=== PATIENT | female | born 1990 | race Caucasian/White ===

== ENCOUNTER 2021-06-09 10:03 | Outpatient (CLI) | payer OTHER, SELFPAY ==
--- NOTE | 2021-06-09 | ECHO_ITS ---
Patient Info Name: Concepcion Tavares Age: 30 years : 1990 Gender: Female Ht: 62 in Wt: 205 lbs BSA: 2.06 m2 HR: 92 bpm BP: 143 / 91 mmHg Heart Rhythm: Sinus Rhythm Technical Quality: Good Exam Date: 06/09/2021 2:33 PM Exam Location: [facility] Patient Status: Outpatient Admit Date: 06/09/2021 Staff Ordering Physician: Salazar, Tracee BARNES Braille Proofreader: Graciela Allen RDCS Attending Provider: Salazar, Tracee BARNES Referring Physician: Salazar VIRAMONTES; Exam Type: CA echo doppler color flow Study Info Indications R01.1 - Cardiac murmur, unspecified Complete two-dimensional, color flow and Doppler transthoracic echocardiogram is performed. Summary 1. Complete two-dimensional, color flow and Doppler transthoracic echocardiogram is performed. 2. Left ventricular systolic function is normal, estimated at 60-65%. 3. Left ventricular chamber dimension is normal. 4. Right ventricular chamber dimension is normal. 5. No valvular lesions. Left Ventricle Left ventricular chamber dimension is normal. Left ventricular systolic function is normal, estimated at 60-65%. The left ventricular diastolic function is normal. Right Ventricle Right ventricular chamber dimension is normal. Left Atria Left atrial chamber dimension is normal. Right Atria Right atrial chamber dimension is normal. Aortic Valve The aortic valve is normal. Pulmonic Valve The pulmonic valve is normal. Mitral Valve The mitral valve has normal leaflets. Tricuspid Valve The tricuspid valve leaflets are normal. Pericardium/Pleural The pericardium appears normal. Aorta The aortic root size at the sinus of Valsalva is normal. Left Ventricular Outflow Tract Name Value Normal LVOT 2D LVOT Diameter 1.9 cm LVOT Doppler LVOT Peak Gradient 11 mmHg LVOT Mean Gradient 5 mmHg LVOT VTI 31 cm LVOT VTI/AV VTI Ratio 1.1 LVOT Stroke Volume 86 ml LVOT CO 7.6 l/min LVOT CI 3.7 l/min/m2 Pulmonic Valve Name Value Normal RVOT Doppler RVOT Peak Gradient 4 mmHg PV Doppler PV Peak Gradient 7 mmHg Mitral Valve Name Value Normal MV Doppler MV Decel [place] 636 cm/s2 MV PHT 42 ms MV Area (PHT)
--- NOTE | ~2021-06-09 | US_ITS ---
EXAMINATION: US carotid duplex BI DATE: 06/09/2021 11:30 INDICATION: Carotid bruit TECHNIQUE: Grayscale, color Doppler, and pulsed Doppler images of the cervical carotid arteries were obtained. The degree of vessel stenosis is placed in one of the following categories: normal, <50%, 5 0-69%, >=70% but less than near-occlusion, near-occlusion, or total occlusion. Note that percent sten osis relative to normal distal artery lumen diameter is indirectly measured from velocity measurement s as described by Krishna, et al. Radiology 2003; 229:340-346. COMPARISON: None. FINDINGS: RIGHT: The right common carotid artery (CCA) peak systolic velocity (PSV) is 100 cm/s. The right internal ca rotid artery (ICA) PSV is 90 cm/s. The right ICA end-diastolic velocity (EDV) is 37 cm/s. The right I CA/CCA PSV ratio is 0.9. Grayscale and color Doppler images yield an estimate of <50% diameter reduct ion from plaque in the ICA. The external carotid artery (ECA) PSV is 115 cm/s. There is antegrade jeannie w in the right vertebral artery. LEFT: The left CCA PSV is 67 cm/s. The left ICA PSV is 103 cm/s. The left ICA EDV is 89 cm/s. The left ICA/ CCA PSV ratio is 1.5. Grayscale and color Doppler images yield an estimate of <50% diameter reduction from plaque in the ICA. The ECA PSV is cm/s. There is antegrade flow in the left vertebral artery. IMPRESSION: 1. <50% stenosis in the right internal carotid artery. 2. <50% stenosis in the left internal carotid artery. Reviewed, dictated and finalized at location A.
== END 2021-06-09 10:04 | disposition home or self-care (01) ==
PROVIDERS: PCP Internal Medicine; Visit Provider Physician Assistant Medical
DX: R01.1 Cardiac murmur, unspecified (principal); I65.23 Occlusion and stenosis of bilateral carotid arteries
CPT/HCPCS: 93306; 93880

== ENCOUNTER 2021-08-19 15:02 | Observation (INO) | payer OTHER, SELFPAY ==
[2021-08-19] VITALS (76 sets, daily range): BP systolic 117–137; BP diastolic 61–79; PULSE 57–109; TEMP 36.8; O2SAT 89–100
[2021-08-19 11:54] LABS: Basophils Absolute Auto 0.1 K/mm3 (0.0-0.1); Basophils Percent Auto 0.6 % (0.2-1.2); Eosinophils Absolute Auto 0.1 K/mm3 (0-0.3); Eosinophils Percent Auto 1.3 % (0-4.4); Hematocrit 34.9 % (37.0-47.0); Hemoglobin 11.7 g/dL (12.0-15.0); Immature Granulocyte Absolute 0.05 K/mm3 (0.00-0.031); Immature Granulocyte Percent A 0.5 % (0-0.5); Lymphocytes Absolute Auto 1.79 K/mm3 (0.9-3.2); Mean Corpuscular HGB Conc 33.5 g/dl (32-36); Mean Corpuscular Hemoglobin 30.5 pg (26-34); Mean Corpuscular Volume 91.1 fl (80-100); Mean Platelet Volume 11.9 fl (7.4-10.4); Monocytes Absolute Auto 0.9 K/mm3 (0.1-0.6); Monocytes Percent Auto 9.3 % (2.6-8.5); Neutrophils Percent Auto 70.3 % (45.5-73.1); Platelet Count Result 203 k/mm3 (150-375); Red Blood Count 3.83 M/mm3 (4.2-5.4); Red Cell Distribution Width 13.6 % (11.5-14.5)
[2021-08-19 11:57] LABS: Add Urine Microscopic? NO; Appearance Urine Clear (Clear); Bilirubin Urine Negative (Negative); Blood Urine Negative (Negative); Color Urine Yellow (Yellow); Glucose Urine UA Negative (Negative); Ketones Urine Negative (Negative); Leukocyte Esterase Ur Negative LEU/UL (Negative); Nitrate Urine Negative (Negative); Protein Urine Negative (Negative); Urobilinogen Urine Negative mg/dL (<2.0)
[2021-08-19 12:08] LABS: Alanine Aminotransferase 20 U/L (4-35); Albumin Level 3.9 g/dL (3.5-5.1); Alkaline Phosphatase 185 U/L (38-126); Anion Gap 10 mmol/L (8-16); Aspartate Amino Transferase 23 U/L (14-36); Bilirubin,Total 0.4 mg/dL (0.2-1.3); Blood Urea Nitrogen 4 mg/dL (7-17); Calcium 9.7 mg/dL (8.4-10.2); Carbon Dioxide 21 mmol/L (22-30); Chloride 105 mmol/L (98-107); Estimated Glomerular Filt Rate > 60; Glucose 98 mg/dL (65-110); Potassium 3.7 mmol/L (3.4-5.0); Sodium 136 mmol/L (137-145); Uric Acid 3.3 mg/dL (2.5-7.5)
[2021-08-19 13:42] LABS: Creatinine Urine 46.5 mg/dL; Total Protein Urine Random 15 mg/dL; Ur Ttl Prot Creatinine Ratio 0.32 mg/mg (0-0.20)
[2021-08-19] MEDS: NIFEdipine 30 MG TAB.ER.24 PO (15:00)
[2021-08-19] MEDS: TERBUTALINE SULFATE 1 MG/ML VIAL 0.25 MG SUB-Q (16:12)
--- NOTE | 2021-08-24 17:46 | PM.OBTRLD ---
OB - Triage/Final Diagnosis Visit Information Date of evaluation: 08/19/21 Reason for evaluation: other (elevated blood pressure) Comments/Additional reasons for admission: I have assessed the risk for this patient, Concepcion Tavares, and determined that she would benefit from observation care. Evaluation Laboratory results: Laboratory Tests 08/19/21 08/19/21 08/19/21 11:42 11:42 11:42 WBC 10.0 RBC 3.83 L Hgb 11.7 L Hct 34.9 L MCV 91.1 MCH 30.5 MCHC 33.5 RDW 13.6 Plt Count 203 MPV 11.9 H Immature Gran % (Auto) 0.5 Neut % (Auto) 70.3 Lymph % (Auto) 18.0 L [place] % (Auto) 9.3 H Eos % (Auto) 1.3 Baso % (Auto) 0.6 Lymph # (Auto) 1.79 [place] # (Auto) 0.9 H Eos # (Auto) 0.1 Baso # (Auto) 0.1 Abs Immat Gran (auto) 0.05 H Absolute Neuts (auto) 7.0 H Absolute Nucleated RBC 0.0 Nucleated RBC % 0.0 Sodium 136 L Potassium 3.7 Chloride 105 Carbon Dioxide 21 L Anion Gap 10 BUN 4 L Creatinine 0.40 L Estim Creat Clear Calc Not Reportable Estimated GFR > 60 Glucose 98 Uric Acid 3.3 Calcium 9.7 Total Bilirubin 0.4 AST 23 ALT 20 Alkaline Phosphatase 185 H Total Protein 7.0 Albumin 3.9 Urine Color Urine Appearance Urine pH Ur Specific [place] Urine Protein Urine Glucose (UA) Urine Ketones Ur Blood (Man) Urine Nitrate Urine Bilirubin Urine Urobilinogen Leukocyte Esterase Rfl U Random Total Protein 15 Urine Creatinine 46.5 Protein/Creat Ratio 2 0.32 H 08/19/21 11:42 WBC RBC Hgb Hct MCV MCH MCHC RDW Plt Count MPV Immature Gran % (Auto) Neut % (Auto) Lymph % (Auto) [place] % (Auto) Eos % (Auto) Baso % (Auto) Lymph # (Auto) [place] # (Auto) Eos # (Auto) Baso # (Auto) Abs Immat Gran (auto) Absolute Neuts (auto) Absolute Nucleated RBC Nucleated RBC % Sodium Potassium Chloride Carbon Dioxide Anion Gap BUN Creatinine Estim Creat Clear Calc Estimated GFR Glucose Uric Acid Calcium Total Bilirubin AST ALT Alkaline Phosphatase Total Protein Albumin Urine Color Yellow Urine Appearance Clear Urine pH 8.0 Ur Specific [place] 1.010 Urine Protein Negative Urine Glucose (UA) Negative Urine Ketones Negative Ur Blood (Man) Negative Urine Nitrate Negative Urine Bilirubin Negative Urine Urobilinogen Negative Leukocyte Esterase Rfl Negative U Random Total Protein Urine Creatinine Protein/Creat Ratio 2
== END 2021-08-19 18:26 | disposition home or self-care (01) ==
LOC: ANHOBOP 15:25 → ANHOBPP 15:25
PROVIDERS: Advanced Practice Midwife; Admitting Provider Obstetrics & Gynecology; PCP Internal Medicine; Visit Provider Obstetrics & Gynecology
DX: O16.9 Unspecified maternal hypertension, unspecified trimester (principal); Z3A.00 Weeks of gestation of pregnancy not specified
CPT/HCPCS: 36415; 59025; 80053; 81003; 82570; 84156; 84550; 85025; 96372; 99199; A9270; G0378; G0379; J3105

== ENCOUNTER 2021-08-26 10:44 | Outpatient (CLI) | payer OTHER, SELFPAY ==
[2021-08-26 11:15] VITALS: BP 136/83; PULSE 98
[2021-08-26 11:25] LABS: Basophils Percent Auto 0.3 % (0.2-1.2); Eosinophils Absolute Auto 0.3 K/mm3 (0-0.3); Hematocrit 34.6 % (37.0-47.0); Hemoglobin 11.4 g/dL (12.0-15.0); Immature Granulocyte Absolute 0.12 K/mm3 (0.00-0.031); Immature Granulocyte Percent A 0.8 % (0-0.5); Lymphocytes Absolute Auto 1.11 K/mm3 (0.9-3.2); Lymphocytes Percent Auto 7.5 % (18.3-44.2); Mean Corpuscular HGB Conc 32.9 g/dl (32-36); Mean Corpuscular Volume 91.1 fl (80-100); Mean Platelet Volume 12.2 fl (7.4-10.4); Monocytes Absolute Auto 0.9 K/mm3 (0.1-0.6); Monocytes Percent Auto 6.1 % (2.6-8.5); Neutrophils Absolute Auto 12.4 K/mm3 (1.3-6.7); Neutrophils Percent Auto 83.3 % (45.5-73.1); Platelet Count Result 212 k/mm3 (150-375); Red Cell Distribution Width 13.6 % (11.5-14.5); White Blood Count 14.9 K/mm3 (4.5-10.0)
[2021-08-26 11:29] LABS: Total Protein Urine Random 15 mg/dL
[2021-08-26 11:30] VITALS: BP 126/72; PULSE 85
[2021-08-26 11:32] LABS: Add Urine Microscopic? YES; Appearance Urine Clear (Clear); Bacteria Urine Trace /hpf; Bilirubin Urine Negative (Negative); Blood Urine Negative (Negative); Color Urine Straw (Yellow); Glucose Urine UA Negative (Negative); Ketones Urine Negative (Negative); Leukocyte Esterase Ur 1+ LEU/UL (NEGATIVE); Nitrate Urine Negative (Negative); Protein Urine Negative (Negative); RBC Urine 0-2 /hpf (0-2); Squamous Epithelial Cell Urine Few /hpf (Few); Urobilinogen Urine Negative mg/dL (<2.0); WBC Urine 0-3 /hpf (0-3)
[2021-08-26 11:42] LABS: Alanine Aminotransferase 20 U/L (4-35); Alkaline Phosphatase 191 U/L (38-126); Anion Gap 10 mmol/L (8-16); Aspartate Amino Transferase 21 U/L (14-36); Bilirubin,Total 0.4 mg/dL (0.2-1.3); Blood Urea Nitrogen 4 mg/dL (7-17); Calcium 9.1 mg/dL (8.4-10.2); Carbon Dioxide 21 mmol/L (22-30); Chloride 105 mmol/L (98-107); Estimated Glomerular Filt Rate > 60; Glucose 127 mg/dL (65-110); Potassium 3.8 mmol/L (3.4-5.0); Sodium 136 mmol/L (137-145); Specific Grav Ur 1.003 (1.001-1.035); Uric Acid 3.1 mg/dL (2.5-7.5)
[2021-08-26 11:45] VITALS: BP 128/74; PULSE 85
--- NOTE | 2021-08-26 11:50 | PC.NURSE ---
LENORA Echeverria at bedside. Tracing, BPs and labs reviewed. March D/C home.
[2021-08-26 11:55] LABS: Ur Ttl Prot Creatinine Ratio 0.75 mg/mg (0-0.20)
== END 2021-08-26 11:53 | disposition home or self-care (01) ==
LOC: ANHOBOP 10:51 → ANHOBPP 10:54
PROVIDERS: Advanced Practice Midwife; PCP Internal Medicine; Visit Provider Obstetrics & Gynecology
DX: O13.9 Gestational [pregnancy-induced] hypertension without significant proteinuria, unspecified trimester (principal); Z3A.00 Weeks of gestation of pregnancy not specified
CPT/HCPCS: 36415; 59025; 80053; 81001; 82570; 84156; 84550; 85025; 87086; 99199

== ENCOUNTER 2021-08-28 10:55 | Outpatient (CLI) | payer OTHER, SELFPAY ==
[2021-08-28 11:11] VITALS: BMI 40.6
[2021-08-28 11:42] LABS: Collection Time Urine 24 HOURS
[2021-08-28 11:43] LABS: Patient Weight 222 Lbs; Total Volume 24 Hour Urine 2300 ml
[2021-08-28 11:46] LABS: Estimated CRCL calculation 189 ml/min; Estimated Glomerular Filt Rate > 60
[2021-08-28 12:02] LABS: Creatinine Clearance Urine 225.5 ml/min (75-125); Total Protein Urine 24 Hr 345 mg/24hr (28-141); Total Protein Urine Random 15 mg/dL
== END 2021-08-28 10:56 | disposition home or self-care (01) ==
LOC: ANHOBOP 11:01
PROVIDERS: PCP Internal Medicine; Visit Provider Advanced Practice Midwife
DX: Z34.90 Encounter for supervision of normal pregnancy, unspecified, unspecified trimester (principal); Z3A.00 Weeks of gestation of pregnancy not specified
CPT/HCPCS: 36415; 81050; 82565; 82575; 84156

== ENCOUNTER 2021-08-29 13:30 | Inpatient (IN) | payer OTHER, SELFPAY ==
[2021-08-29] VITALS (20 sets, daily range): BP systolic 106–151; BP diastolic 54–121; PULSE 66–92; RESP 16–18; TEMP 36.6–36.9; BMI 40.7
[2021-08-29 14:50] LABS: Basophils Percent Auto 0.2 % (0.2-1.2); Eosinophils Absolute Auto 0.3 K/mm3 (0-0.3); Eosinophils Percent Auto 2.7 % (0-4.4); Hematocrit 34.2 % (37.0-47.0); Hemoglobin 11.4 g/dL (12.0-15.0); Immature Granulocyte Absolute 0.06 K/mm3 (0.00-0.031); Immature Granulocyte Percent A 0.6 % (0-0.5); Lymphocytes Absolute Auto 1.65 K/mm3 (0.9-3.2); Lymphocytes Percent Auto 15.9 % (18.3-44.2); Mean Corpuscular HGB Conc 33.3 g/dl (32-36); Mean Corpuscular Hemoglobin 30.2 pg (26-34); Mean Corpuscular Volume 90.7 fl (80-100); Monocytes Absolute Auto 0.9 K/mm3 (0.1-0.6); Monocytes Percent Auto 8.8 % (2.6-8.5); Neutrophils Absolute Auto 7.5 K/mm3 (1.3-6.7); Neutrophils Percent Auto 71.8 % (45.5-73.1); Platelet Count Result 213 k/mm3 (150-375); Red Blood Count 3.77 M/mm3 (4.2-5.4); Red Cell Distribution Width 13.7 % (11.5-14.5); White Blood Count 10.4 K/mm3 (4.5-10.0)
--- NOTE | 2021-08-29 15:00 | LDADM ---
This patient, Concepcion Tavares, was admitted to Labor/Delivery/Recovery 104 on 08/29/21 at 13:30. Plans for labor, pain management and were discussed with patient. Patient/family oriented to hospital policies and general routines including ID bracelet, bed and alarms, visiting hours, pain management, procedures, bathroom and other care routines, personal items, smoking policy, room service/diet and guest tray routines, infant security routines, and visiting hours. Patient/Family are encouraged to report perceived risks to care and to ask questions if they do not understand what they are told or what they should do. See OBIX for further documentation.
[2021-08-29 15:25] LABS: Alanine Aminotransferase 18 U/L (4-35); Albumin Level 3.8 g/dL (3.5-5.1); Alkaline Phosphatase 201 U/L (38-126); Anion Gap 8 mmol/L (8-16); Aspartate Amino Transferase 22 U/L (14-36); Bilirubin,Total 0.3 mg/dL (0.2-1.3); Blood Urea Nitrogen 5 mg/dL (7-17); Calcium 9.3 mg/dL (8.4-10.2); Carbon Dioxide 20 mmol/L (22-30); Chloride 108 mmol/L (98-107); Estimated CRCL calculation 155 ml/min; Estimated Glomerular Filt Rate > 60; Glucose 94 mg/dL (65-110); Potassium 3.8 mmol/L (3.4-5.0); Sodium 136 mmol/L (137-145); Uric Acid 3.3 mg/dL (2.5-7.5)
[2021-08-29] MEDS: DINOPROSTONE 10 MG VAG INSERT VAGINAL (16:12)
[2021-08-29] MEDS: LACTATED RINGERS 1,000 ML 125 ML IV CONT (16:16)
[2021-08-29] MEDS: AMPICILLIN 2 GM/NS 100 ML 2 GM/100 ML BAG IVPB (16:18)
[2021-08-29] MEDS: AMPICILLIN 1 GM/NS 50 ML 1 GM/50 ML BAG IVPB (20:25)
[2021-08-30] VITALS (108 sets, daily range): BP systolic 103–158; BP diastolic 47–114; PULSE 60–116; RESP 16–20; TEMP 36.8–37.5; O2SAT 95–100
[2021-08-30] MEDS: AMPICILLIN 1 GM/NS 50 ML 1 GM/50 ML BAG IVPB ×4 (00:29→12:19)
[2021-08-30] MEDS: OXYTOCIN 30 UNITS/NS 500 ML 30 UNITS/500 ML BAG IV CONT (06:30)
[2021-08-30] MEDS: LACTATED RINGERS 1,000 ML 125 ML IV CONT ×2 (06:31→11:14)
[2021-08-30 07:30] LABS: Rapid Plasma Reagin Non-Reactive (NonReactive)
--- NOTE | 2021-08-30 08:08 | P.HP_ITS ---
Obstetrics - Admit Note Admission Note: 30 y/o G1 @ 36w6d here for induction of labor for severe pre e. She did have 3 severe range pressures on separate occasions and elevated 24 hour total protein. Contractions irregular FHR category 1 Cervix 5/80/-2 Arom performed. Leaking scant amount of fluid. record reviewed. Plan to continue with induction. Start magnesium when active. No pertinent additions to the history and/or any subsequent changes in the physical findings that are not consistent with the expected course of the preg alice were found. Additions to the history and/or subsequent changes in the physical findings follow. None.
[2021-08-30] MEDS: fentaNYL CITRATE INJ (*CRX) 100 MCG/2 ML VIAL IV PUSH (09:22)
--- NOTE | 2021-08-30 09:53 | WPDANESEPPF ---
Anes - Initial Pre Proc Eval Date/Time: 08/30/21 09:53 Surgeon: Batsheva Bishop MD Pre Op Diagnosis: 30 y/o G1 @ 36w6d here for induction of labor for severe pre e. She did have 3 severe range pressures on separate occasions and elevated 24 hour total protein. Contractions irregular FHR category 1 Cervix 5/80/-2 Arom performed. Leaking scant amount of fluid. record reviewed. Plan to continue with induction. Start magnesium when active. Pre Op Diagnosis: Induction of Labor Patient Data Age: 30 Gender: F Height: 1.57 m Weight: 101 kg Allergies Allergy/AdvReac Type Severity Reaction Status Date / Time No Known Allergies Allergy Verified 08/29/21 15:18 Home Medications Medication Instructions Recorded Confirmed Type PNV cmb#95-ferrous fumarate-FA 1 tablet PO DAILY 08/19/21 08/29/21 History [] ferrous sulfate 143 mg PO BID 08/19/21 08/29/21 History nifedipine [Procardia XL] 30 mg PO DAILY #30 tablet 08/19/21 08/29/21 Rx sertraline 25 mg PO DAILY 08/19/21 08/29/21 History Laboratory Tests 08/29/21 08/29/21 08/29/21 14:12 14:12 14:42 WBC 10.4 K/mm3 H K/mm3 (4.5-10.0) RBC 3.77 M/mm3 L M/mm3 (4.2-5.4) Hgb 11.4 g/dL L g/dL (12.0-15.0) Hct 34.2 % L % (37.0-47.0) MCV 90.7 fl fl (80-100) MCH 30.2 pg pg (26-34) MCHC 33.3 g/dl g/dl (32-36) RDW 13.7 % % (11.5-14.5) Plt Count 213 k/mm3 k/mm3 (150-375) MPV 12.0 fl H fl (7.4-10.4) Immature Gran % (Auto) 0.6 % H % (0-0.5) Neut % (Auto) 71.8 % % (45.5-73.1) Lymph % (Auto) 15.9 % L % (18.3-44.2) [place] % (Auto) 8.8 % H % (2.6-8.5) Eos % (Auto) 2.7 % % (0-4.4) Baso % (Auto) 0.2 % % (0.2-1.2) Lymph # (Auto) 1.65 K/mm3 K/mm3 (0.9-3.2) [place] # (Auto) 0.9 K/mm3 H K/mm3 (0.1-0.6) Eos # (Auto) 0.3 K/mm3 K/mm3 (0-0.3) Baso # (Auto) 0.0 K/mm3 K/mm3 (0.0-0.1) Abs Immat Gran (auto) 0.06 K/mm3 H K/mm3 (0.00-0.031) Absolute Neuts (auto) 7.5 K/mm3 H K/mm3 (1.3-6.7) Absolute Nucleated RBC 0.0 K/mm3 K/mm3 (0.0-0.012) Nucleated RBC % 0.0 % % (0.0-0.2) Sodium 136 mmol/L L mmol/L (137-145) Potassium 3.8 mmol/L mmol/L (3.4-5.0) Chloride 108 mmol/L H mmol/L (98-107) Carbon Dioxide 20 mmol/L L mmol/L (22-30) Anion Gap 8 mmol/L mmol/L (8-16) BUN 5 mg/dL L mg/dL (7-17) Creatinine 0.50 mg/dL L mg/dL (0.7-1.0) Estim Creat Clear Calc 155 ml/min ml/min Estimated GFR > 60 (59 - ) Glucose 94 mg/dL mg/dL (65-110) Uric Acid 3.3 mg/dL mg/dL (2.5-7.5) Calcium 9.3 mg/dL mg/dL (8.4-10.2) Total Bilirubin 0.3 mg/dL mg/dL (0.2-1.3) AST 22 U/L U/L (14-36) ALT 18 U/L U/L (4-35) Alkaline Phosphatase 201 U/L H U/L (38-126) Total Protein 7.0 g/dL g/dL (6.3-8.2) Albumin 3.8 g/dL g/dL (3.5-5.1) RPR Non-reactive (NonReactive) Blood Type Antibody Screen 08/29/21 18:56 WBC RBC Hgb Hct MCV MCH MCHC RDW Plt Count MPV Immature Gran % (Auto) Neut % (Auto) Lymph % (Auto) [place] % (Auto) Eos % (Auto) Baso % (Auto) Lymph # (Auto) [place] # (Auto) Eos # (Auto) Baso # (Auto) Abs Immat Gran (auto) Absolute Neuts (auto) Absolute Nucleated RBC Nucleated RBC % Sodium Potassium Chloride Carbon Dioxide Anion Gap BUN Creatinine Estim Creat Clear Calc Estimated GFR Glucose Uric Acid Calcium Total Bilirubin AST ALT Alkaline Phosphatase To
[2021-08-30] MEDS: MAGNESIUM SULF 4 GM/WATER100ML 4 GM/100 ML BAG IVPB (10:20)
[2021-08-30] MEDS: MAGNESIUM SULF 20GM/WATER500ML 500 ML 50 MG IV CONT ×2 (11:12→21:28)
--- NOTE | 2021-08-30 14:36 | PM.OBPRVD ---
OB - Delivery Note Procedure Delivery date: 08/30/21 Procedure: vaginal delivery events: Pre-Eclampsia Intrapartal events: None Induction method: AROM, per pitocin protocol and per cervidil protocol Delivery monitor: external FHT and external uterine Route of delivery: Episiotomy description: None Laceration Description: Perineal - 2nd Degree Delivery repair: vicryl Specimen: Yes Anesthesia type: Epidural Disposition: floor Baby Date of : 08/30/21 Time of : 14:18 Weeks of gestation at delivery: 36 Infant gender: Male Weight (pounds): 6 Weight (ounces): 13 presentation: vertex position: Left Occiput Anterior Placenta delivery description: Spontaneous cord vessel description: 3 Vessels, Loose, Clamped/Cut, Around Body x1 and Delayed Cord Clamping score one minute: 6 score five minutes: 8 Narrative: mother and baby skin to skin in stable condition
[2021-08-30] MEDS: OXYTOCIN 30 UNITS/NS 500 ML 30 UNITS/500 ML BAG 125 UNITS IV CONT (15:18)
[2021-08-30] MEDS: WITCH HAZEL 40 PADS 1 PAD TOPICAL (16:09)
[2021-08-30] MEDS: BENZOCAINE 20% AER SPR (*SP) 56 GM CAN 1 SPRAY TOPICAL (16:09)
[2021-08-30] MEDS: ACETAMINOPHEN 325 MG TABLET 650 MG PO (21:07)
[2021-08-31] MEDS: LACTATED RINGERS 1,000 ML 125 ML IV CONT (01:38)
[2021-08-31 03:40] VITALS: BP 104/62; PULSE 88; RESP 20; TEMP 36.9; O2SAT 94
[2021-08-31 04:50] LABS: Hematocrit 30.2 % (37.0-47.0); Hemoglobin 10.1 g/dL (12.0-15.0)
--- NOTE | 2021-08-31 07:24 | PM.OBPNVD ---
OB - PN: Subj Subjective Date/time seen: 08/31/21 07:25 Patient comments: no complaints baby status: doing well OB - PN: Obj Data Labs CBC & Chem 7: 08/31/21 03:51 08/29/21 14:42 Labs: Laboratory Results - last 24 hr 08/29/21 08/31/21 14:12 03:51 Hgb 10.1 L Hct 30.2 L RPR Non-reactive OB - PN A/P Plan day: 1 Plan: routine care Time Spent With Patient Time: Total time spent is greater than 50% in coordination of care (as documented) at patient's floor/unit and/or counseling patient: Exam Narrative: alert Const: General: cooperative Resp: Effort & Inspection: normal respiratory effort Auscultation: clear to auscultation bilaterally Cardio: Rate: regular rate Rhythm: regular rhythm
[2021-08-31] MEDS: MAGNESIUM SULF 20GM/WATER500ML 500 ML 50 MG IV CONT (07:57)
--- NOTE | 2021-08-31 08:00 | PC.NURSE ---
Consult with pt., mother reports she has been bottle feeding due to is sleepy and not making an effort to latch. Discussed if mother wishes to attempt today assist is available. Reviewed pumping if mother wishes to initiate pumping to stimulate supply. Reviewed feeding plan would be to attempt at breast each feeding then supplement followed by pumping. Mother states she will consider options and will inform LC lamination inspector.
[2021-08-31 08:20] VITALS: BP 115/73; PULSE 83; RESP 16; TEMP 36.7; O2SAT 98
[2021-08-31] MEDS: MULTIVIT/MIN/PREN/FOL AC/IRON TABLET 1 TAB PO (09:01)
[2021-08-31] MEDS: DOCUSATE SODIUM 100 MG CAPSULE PO (09:01)
[2021-08-31 11:51] VITALS: BP 125/69; PULSE 87; RESP 16; TEMP 37.1; O2SAT 98
--- NOTE | 2021-08-31 14:31 | WPDANLDPN2 ---
Anes-Prog Note L&D Date/Time: 08/31/21 14:31 Comfortable throughout: labor and delivery Neuraxial method: epidural Epidural/Spinal procedure site: clean & non-tender Neuro status: Neuro function grossly intact. Cardiovascular status: normal Respiratory status: normal Airway patency: baseline Mental status: baseline Post-Op hydration status: normal Vital Signs: Last Vital Signs Temp 37.1 C 08/31/21 11:51 Pulse 87 08/31/21 11:51 Resp 16 08/31/21 11:51 BP 125/69 08/31/21 11:51 Pulse Ox 98 08/31/21 11:51 Pain score (VAS): 3 I/O: Intake & Output 08/30/21 08/31/21 08/31/21 23:59 07:59 15:59 Intake Total 4200 1250 1300 Output Total 2950 1900 1000 Balance 1250 -650 300 Post-procedural complaints: none Patient feedback: Patient satisfied with anesthetic care.
[2021-08-31 16:30] VITALS: BP 137/85; PULSE 84; RESP 16; TEMP 36.8; O2SAT 98
[2021-08-31 19:25] VITALS: BP 142/75; PULSE 95; RESP 16; TEMP 36.6; O2SAT 98
[2021-09-01 00:15] VITALS: BP 139/82; PULSE 82; RESP 16; TEMP 36.7
[2021-09-01 05:15] VITALS: BP 126/78; PULSE 71; RESP 18; TEMP 36.7
[2021-09-01 07:55] VITALS: BP 131/88; PULSE 81; RESP 18; TEMP 36.6; O2SAT 98
--- NOTE | 2021-09-01 07:55 | PM.OBPNVD ---
OB - PN: Subj Subjective Date/time seen: 09/01/21 07:55 Patient comments: no complaints baby status: doing well OB - PN: Obj Data Labs CBC & Chem 7: 08/31/21 03:51 08/29/21 14:42 OB - PN A/P Plan day: 2 Plan: routine care and discharge home (F/U in 1 week for bp check) Time Spent With Patient Time: Total time spent is greater than 50% in coordination of care (as documented) at patient's floor/unit and/or counseling patient: Time with patient: less than 15 minutes Review of Systems Review of Systems: All systems reviewed & are unremarkable except as noted in HPI and below Exam Narrative: Fundus firm and vaginal flow controlled. No lower ext redness, warmth, or edema. Negative homans. Denies h/a, v/d or e/p. Reflexes normal. Const: General: comfortable Chest: Breast/axilla inspection: normal inspection of the breasts Resp: Effort & Inspection: normal respiratory effort Cardio: Rate: regular rate GI: GI Palp: Yes Soft to palpation Psych: Appearance: grossly normal Affect: normal affect Attitude: cooperative Thought content: Yes Normal thought content present Judgement: Good judgement present (Psych)
[2021-09-01 08:30] VITALS: PULSE 81; RESP 18; O2SAT 98
[2021-09-01 12:28] VITALS: BP 141/74; PULSE 84; RESP 18; TEMP 37.1; O2SAT 97
--- NOTE | 2021-09-01 17:11 | PC.NURSE ---
Patient viewed the discharge video Mother & Baby Care, The First Two Weeks . Patient was given the opportunity and encouraged to ask questions. Patient verbalized understanding of information shared and has been given the mother/baby guide for home reference.
[2021-09-02 09:46] VITALS: BP 147/89; PULSE 81; RESP 20; TEMP 37.1; O2SAT 100
--- NOTE | 2021-09-19 08:31 | P.DS_ITS ---
DS: Admitting Diagnosis Discharge Date 09/01/21 Admitting Diagnosis Induction of Labor OB - DS: Summary OB Procedures : None OB Procedures Intrapartum: Spontaneous Vag Delivery OB Procedures: : None Time Spent with Patient Time attestation: Total time spent providing and/or coordinating discharge s ervices: DS: Data Data Completed and Pending Completed studies during hospitalization: Pending at discharge 08/30/21 14:21 Surgical [PTH] Routine Discharge Plan Discharge Attending physician on discharge: Carissa Cadena Consulting providers: Natalya Goldberg ; Carissa Cadena ; Johnathon Cole Discharging Clinician: Natalya Goldberg Patient Disposition: Home, Self-Care Activity: pelvic rest Diet: as tolerated Discharge Instructions: Education: Mom and Baby Guide Given to: Mother Follow-Up: Call your delivering provider's office for an appointment to be seen in: F/U 1 week for blood pressure check Mom and baby should come to the [facility] for the follow-up appointment. Appointment Date/Time: Thursday, September 02, 2021 at 9:00 a.m. What to expect at your follow-up visit: Blood Pressure Check Physical Assessment Call [phone] if you are unable to keep your appointment time. BREAST CARE: * Wear a snug supportive bra. * For engorgement discomfort: Bottle Feeding: * May apply ice packs EPISIOTOMY/PERINEAL CARE: * Until bleeding stops, use your christen bottle after urinating * Change your pad frequently throughout the day * You may take sitz baths several times a day (fill your bathtub with warm water and soak for 20 minutes.) Do NOT bathe in the water * No tub baths until seen by your physician - You may shower ACTIVITY: * Rest as much as possible. * Do not exercise or lift anything heavier than your baby (such as laundry or other children.) * Avoid stairs or driving as much as possible. * Do not put anything into the vagina. No douching, tampons, or sexual activity until seen by physician. NOTIFY PHYSICIAN IF YOU HAVE ANY QUESTIONS OR IF ANY OF THE FOLLOWING SYMPTOMS OCCUR: * If your perineum becomes red, swollen, or more painful than what you have experienced in the hospital. * If your vaginal bleeding becomes foul smelling. * If your vaginal bleeding becomes more heavy than a period or if your bleeding changes from pink to bright red. However, you may pass an occasional walnut- sized clot once or twice for the first week . * If you experience a sharp, shooting pain in you calves. DIET: * Eat regular, well-balanced meals. * Drink plenty of fluids daily. Stand Alone Forms: General Discharge Information Follow-up/Referrals: Carissa Cadena CNM [Certified Nurse Medical Claims Examiner] - Other (F/U 1 week for blood pressure check) Discharge Medications: Continued sertraline 25 mg tablet 25 mg PO DAILY RF: 0 ferrous sulfate 47.5 mg iron Tablet Extended Release 143 mg PO BID RF: 0 PNV cmb#95-ferrous fumarate-FA [] 28 mg iron- 800 mcg Tablet 1 tablet PO DAILY RF: 0 No Action mecobalamin (vitamin B12) 1,000 mcg Tablet,Disintegrating 2,000 mcg PO DAILY RF: 0 Date of admission: 08/29/21 13:30 Primary Care Provider: Shila,Moisés Franz Admitting Provider: Batsheva Bishop Attending physician on admission: Batsheva Bishop Condition: Stable
== END 2021-09-01 19:00 | disposition home or self-care (01) | DRG 807 ==
LOC: ANHOBPP 13:37 → ANHLDR 14:33 → ANHOB2 08-30 17:55
PROVIDERS: Advanced Practice Midwife; Admitting Provider Obstetrics & Gynecology; PCP Internal Medicine; Visit Provider Obstetrics & Gynecology
DX: O14.94 Unspecified pre-eclampsia, complicating childbirth (principal); Z37.0 Single live birth; Z3A.36 36 weeks gestation of pregnancy; O70.1 Second degree perineal laceration during delivery; O43.123 Velamentous insertion of umbilical cord, third trimester; O36.8330 Maternal care for abnormalities of the fetal heart rate or rhythm, third trimester, not applicable or unspecified; O99.824 Streptococcus B carrier state complicating childbirth; O69.2XX0 Labor and delivery complicated by other cord entanglement, with compression, not applicable or unspecified; Z23 Encounter for immunization
CPT/HCPCS: 36415; 59025; 80053; 81001; 81050; 82565; 82570; 82575; 84156; 84550; 85014; 85018; 85025; 86592; 86850; 86900; 86901; 87086; 88307; 90471; 90653; 99199; A9270; G0008; J0290; J2590; J3010; J3475; J7120

== ENCOUNTER 2021-09-07 10:37 | Outpatient (CLI) | payer OTHER, SELFPAY ==
[2021-09-07 11:06] VITALS: BP 136/81; PULSE 69; RESP 16; TEMP 36.8; BMI 36.5
[2021-09-07 11:07] VITALS: BP 136/81; PULSE 69
[2021-09-07 11:27] LABS: Basophils Absolute Auto 0.1 K/mm3 (0.0-0.1); Basophils Percent Auto 0.7 % (0.2-1.2); Eosinophils Absolute Auto 0.2 K/mm3 (0-0.3); Hematocrit 33.7 % (37.0-47.0); Hemoglobin 11.3 g/dL (12.0-15.0); Immature Granulocyte Absolute 0.04 K/mm3 (0.00-0.031); Immature Granulocyte Percent A 0.4 % (0-0.5); Lymphocytes Percent Auto 20.2 % (18.3-44.2); Mean Corpuscular HGB Conc 33.5 g/dl (32-36); Mean Corpuscular Hemoglobin 30.1 pg (26-34); Mean Corpuscular Volume 89.9 fl (80-100); Mean Platelet Volume 10.8 fl (7.4-10.4); Monocytes Absolute Auto 0.6 K/mm3 (0.1-0.6); Monocytes Percent Auto 6.4 % (2.6-8.5); Neutrophils Absolute Auto 6.3 K/mm3 (1.3-6.7); Neutrophils Percent Auto 70.3 % (45.5-73.1); Platelet Count Result 339 k/mm3 (150-375); Red Blood Count 3.75 M/mm3 (4.2-5.4); Red Cell Distribution Width 13.4 % (11.5-14.5); White Blood Count 8.9 K/mm3 (4.5-10.0)
[2021-09-07 11:31] VITALS: BP 131/79; PULSE 66
[2021-09-07 11:45] VITALS: BP 136/84; PULSE 66
[2021-09-07 11:45] LABS: Alanine Aminotransferase 29 U/L (4-35); Albumin Level 4.3 g/dL (3.5-5.1); Alkaline Phosphatase 170 U/L (38-126); Anion Gap 10 mmol/L (8-16); Aspartate Amino Transferase 27 U/L (14-36); Bilirubin,Total 0.5 mg/dL (0.2-1.3); Blood Urea Nitrogen 8 mg/dL (7-17); Calcium 9.2 mg/dL (8.4-10.2); Carbon Dioxide 24 mmol/L (22-30); Chloride 106 mmol/L (98-107); Estimated CRCL calculation 108 ml/min; Estimated Glomerular Filt Rate > 60; Glucose 91 mg/dL (65-110); Potassium 4.5 mmol/L (3.4-5.0); Sodium 140 mmol/L (137-145); Uric Acid 5.7 mg/dL (2.5-7.5)
[2021-09-07 12:00] VITALS: BP 140/83; PULSE 65
--- NOTE | 2021-09-07 12:03 | PC.NURSE ---
Giana Goldberg CNM informed of BP's and lab results. Orders for discharge received. Pt to make appointment for BP recheck next week in the office with either Natalya or Carissa- pt verbalizes understanding.
== END 2021-09-07 12:11 ==
LOC: ANHOBOP 10:45 → ANHOBPP 09-12 07:51
PROVIDERS: Advanced Practice Midwife; PCP Internal Medicine; Visit Provider Obstetrics & Gynecology
DX: O13.5 Gestational [pregnancy-induced] hypertension without significant proteinuria, complicating the puerperium (principal)
CPT/HCPCS: 36415; 80053; 84550; 85025; 99199

== ENCOUNTER 2021-11-11 16:45 | Emergency (ER) | payer OTHER, SELFPAY ==
[2021-11-11 17:16] VITALS: BP 159/103; PULSE 95; RESP 18; TEMP 36.7; O2SAT 100
--- NOTE | 2021-11-11 21:25 | PC.NURSE ---
Patient called at 2111 for room, no answer and not seen in waiting room.
== END 2021-11-12 03:07 | disposition left against medical advice (07) ==
LOC: ANHED 21:47
PROVIDERS: PCP Internal Medicine
DX: Z53.21 Procedure and treatment not carried out due to patient leaving prior to being seen by health care provider (principal)
CPT/HCPCS: 99199

== ENCOUNTER 2025-04-15 10:15 | Outpatient (CLI) | payer OTHER, SELFPAY ==
--- OUTSIDE RECORDS SUMMARY | 2025-04-15 10:22 | XMS_ITS | Continuity of Care Document ---
Author Organization [facility] Address [address] [place] [address] Phone Care Team Providers Care Gas Appliance Installer Name Role Phone Phuc Quinonez DO Unavailable Unavailable Advance Directives Directive Yes / No Effective Date File Name No Information Encounters Encounter Description Practice Location Reason(s) For Visit Diagnoses Date Provider Providers Copied on Encounter [facility], [address], [place], [place], [id number], tel:[phone] [facility] No Information Cristiano Glynn. [address] [place], [address], . tel: [phone] Family History Family Member Type Diagnosis Age At Onset No Information Payers Payer name Insurance type Covered libertarian ID Authoriza tion(s) General [employer] CI [id number] Social History Type Description Quantity Date Captured Comments Sex Female Smoking Status No Information Chief Complaint And Reason For Visit No Information Reason For Referral Reason For Referral No Information History Of Present Illness Encounter Date Complaint History Of Prese nt Illness No Information Functional Status Date Functional Assessmen t No Information Instructions Date Instruction Additional Infor mation No Information Assessments Type Assessment Date No Information Patient Care Teams Name Effective Dates (start - stop) Status Members No Information
[2025-04-15 10:53] LABS: Hematocrit 31.5 % (37.0-47.0); Hemoglobin 9.6 g/dL (12.0-15.0)
== END 2025-04-15 10:16 | disposition home or self-care (01) ==
PROVIDERS: PCP Nurse Practitioner Family; Visit Provider Obstetrics & Gynecology
DX: N92.6 Irregular menstruation, unspecified (principal)
CPT/HCPCS: 36415; 85014; 85018

== ENCOUNTER 2025-04-17 00:56 | Day surgery (SDC) | payer OTHER, SELFPAY ==
[2025-04-14 08:25] VITALS: BMI 33.0
--- NOTE | 2025-04-14 08:25 | PC.NURSE ---
Report to the Outpatient Waiting Room, entrance under the green pavilion located off [facility], at time _0800_ on date _[id number]_. Planned Procedure Time: _1000_.? Time changes happen often and if your time is changed the preop area will call you the afternoon before. - You and your visitor will be asked to self-screen and do not enter if you have any COVID symptoms. Please call surgeon if you need to reschedule. - A mask is optional within the hospital at this time. Patients may have clear liquids (water, carbonated beverages, clear teas, apple juice) until 3 hours prior to surgery with a maximum of 20 ounces. - No food from midnight until time of surgery and no smoking, or chewing tobacco (or any form of nicotine). No chewing gum, candy or mints. Take only the following medications with a SIP of water on the morning of surgery: ___None____ DO NOT STOP ANY OF YOUR OTHER PRESCRIPTION MEDICATIONS PRIOR TO SURGERY EXCEPT THE FOLLOWING Hold all vitamins and supplements for 3 days per anesthesiologist. Medications to discontinue per physician Date to take last dose Please no make-up, nail ghanaian, hairspray, perfume, deodorant, or body powder the day of surgery.? No jewelry (including any body piercings) or valuables the day of surgery, leave them at home.? Please take a shower or bath the night before, or the morning of, surgery with an antibacterial soap.? Wear comfortable, loose fitting clothing.? - Jewelry must be removed prior to entering the operating room.? Rings and piercings that are not removed may be cut off. - The hospital will not accept responsibility for valuables.? - Please leave all valuables, including medications, at home the day of surgery. If you are going home after surgery, a licensed caterpillar driver must drive you home.? - NO public transportation without another adult if you receive anesthesia. - We recommend that an adult stay with you for 24 hours following discharge. - We also recommend that you do not drive, make important decision, drink alcoholic beverages, or take any drugs that were not prescribed by your health care provider for at least 24 hours after your discharge time. Follow any additional instructions given to you from your surgeon. Telephone instructions given to __Concepcion___and asked if any additional questions and then verbalized understanding. Patient advised to call surgeon office or pre surgery nurse liaison [phone] if any additional questions.
--- NOTE | 2025-04-15 12:11 | P.HP_ITS ---
H&P: HPI History of Present Illness Date/Time: 04/15/25 12:11 Chief Complaint: Irregular heavy bleeding Narrative: This 34-year-old 2 para 1 admitted for hysteroscopy dilatation curettage. She has had heavy bleeding and extreme manner. This at the interferes with her daily activities when her period is present. Imaging was not helpful but the endometrial lining was somewhat irregular. In light of this finding she will undergo hysteroscopy dilatation curettage. Risks and benefits reviewed including not exclusive of , aspiration pneumonia, bleeding, transfusion, perforation injury to bowel, bladder, ureters, or other internal organs with need for open laparotomy. She received the [employer] handout entitled hysteroscopy and dilatation curettage respectively. She had all questions answered. She asked to proceed. Review of Systems Review of Systems: All systems reviewed & are unremarkable except as noted in HPI and below [facility] Past Medical History Medical History (Updated 04/15/25 @ 12:13 by Francis Lezama MD) Migraine Surgical History Surgical History History of umbilical hernia repair 11/26/2019 Family History Family History Grandparent Cancer Father Cancer Hypertension Sibling Cancer Mother Heart disease Hypertension Social History Social History Years smoked: 5 Smoking status: Former smoker Tobacco type: cigarettes and e-cigarettes/vaping Second hand tobacco smoke exposure: No Smoking end date: 04/14/20 Alcohol intake: never Substance use: never Living arrangements: with family Gender identity (if verbalized by the patient): Female Spiritual care concerns: No Meds Home Medications and Allergies Home Medications ?Medication ?Instructions ?Recorded ?Confirmed ?Type sertraline 50 mg tablet 50 mg PO HS 04/14/25 04/14/25 History Allergies Allergy/AdvReac Type Severity Reaction Status Date / Time No Known Allergies Allergy Verified 04/14/25 08:17 Exam Const: General: cooperative, healthy appearing and comfortable Nutritional Appearance: overweight Orientation/consciousness: oriented to person, oriented to place and oriented to time Resp: Effort & Inspection: normal respiratory effort Cardio: Rate: regular rate Rhythm: regular rhythm Heart sounds: S1 normal heart sound present and S2 normal heart sound present GI: Inspection: normal to inspection : External Female Exam: normal external appearance Speculum Exam - Vagina: normal appearance of the vagina Speculum Exam - Cervix: normal appearance of the cervix Bimanual exam- vagina & uterus: non-tender Bimanual Exam- Adnexa, other: normal adnexae Assessment and Plan Assessment and plan (1) Excessive bleeding: Code(s): R58 - Hemorrhage, not elsewhere classified Status: Acute Plan Will proceed with hysteroscopy/dilatation curettage
--- OUTSIDE RECORDS SUMMARY | 2025-04-17 00:59 | XMS_ITS | Continuity of Care Document ---
Author Organization [facility] Address [address] [facility] [address] [place] [address] Phone Care Team Providers Care Social Media Coordinator Name Role Phone Phuc Quinonez DO Unavailable Unavailable Advance Directives Directive Yes / No Effective Date File Name No Information Encounters Encounter Description Practice Location Reason(s) For Visit Diagnoses Date Provider Providers Copied on Encounter [facility], [address], [place], [place], [id number], tel:[phone] [facility] No Information Cristiano Glynn. [address] [place], [address], . tel: [phone] Family History Family Member Type Diagnosis Age At Onset No Information Payers Payer name Insurance type Covered green party ID Authoriza tion(s) General [place] [employer] [id number] Social History Type Description Quantity Date Captured [...]
--- NOTE | 2025-04-17 06:40 | WPDHPUPDATE1 ---
History and Physical Update Update Date/Time: 04/17/25 06:40 History and Physical has been reviewed, including an updated exam of the patient. There are NO changes in the patient's condition. Risks, benefits, and alternatives have been discussed and questions answered. Patient agrees to proceed with procedure.
--- NOTE | 2025-04-17 07:27 | P.PNAN_ITS ---
Anes - Initial Pre Proc Eval Procedure: Operation Date: 04/17/25 10:00 Proposed Procedures p Hysteroscopy Dilation and Curettage - Francis Lezama MD Date/Time: 04/17/25 07:27 Surgeon: Francis Lezama MD Pre Op Diagnosis: irregular bleeding Patient Data Age: 34 Gender: F Height: 1.57 m Weight: 81.8 kg Allergies Allergy/AdvReac Type Severity Reaction Status Date / Time No Known Allergies Allergy Verified 04/14/25 08:17 Home Medications ?Medication ?Instructions ?Recorded ?Confirmed ?Type sertraline 50 mg tablet 50 mg PO HS 04/14/25 04/14/25 History hydrocodone 5 mg-acetaminophen 325 1 tablet PO Q4H PRN pain #20 tabs 04/17/25 Rx mg tablet Patient hx anesthesia problems: none Family hx anesthesia problems: none Results Review: All pre-operative results and documents have been reviewed as part of the pre- operative evaluation. [facility] Past Medical History Medical History (Updated 04/17/25 @ 07:27 by Keaton Weiner DO) Anxiety Anemia Migraine Surgical History Surgical History History of umbilical hernia repair 11/26/2019 Family History Family History Grandparent Cancer Father Cancer Hypertension Sibling Cancer Mother Heart disease Hypertension Social History Social History Years smoked: 5 Smoking status: Former smoker Tobacco type: cigarettes and e-cigarettes/vaping Second hand tobacco smoke exposure: No Smoking end date: 04/14/20 Alcohol intake: never Substance use: never Living arrangements: with family Gender identity (if verbalized by the patient): Female Spiritual care concerns: No Anes - Eval Final PreProcedure Day of Procedure 04/17/25 07:27 Patient weight: obese Heart: regular rate and rhythm Lungs: clear to auscultation Airway: Mallampati scale class II Neurological: alert and oriented Last oral intake: >/= 8 hours ASA classification: II Emergent: no Anesthetic plan: proceed Anesthesia type and monitoring: general GIVS and standard monitoring Results Review: All pre-operative results and documents have been reviewed as part of the pre- operative evaluation. Informed Consent: The patient's anesthetic plan and its attendant risks and benefits were discussed with the patient/family/POA. Questions were solicited and answers provided to the satisfaction of the patient/family/POA.
[2025-04-17 07:50] VITALS: BP 119/70; PULSE 60; RESP 14; TEMP 36.7; O2SAT 100; BMI 35.9
[2025-04-17] MEDS: LACTATED RINGERS 1,000 ML 30 ML IV CONT (08:15)
[2025-04-17] MEDS: ACETAMINOPHEN 500 MG TABLET 1000 MG PO (08:20)
[2025-04-17 08:27] LABS: BEDSIDEPREGUCG Negative (Negative)
[2025-04-17] MEDS: LIDOCAINE 1% LOCAL INJ 10 ML VIAL INFILTRATE (09:33)
--- NOTE | 2025-04-17 09:36 | S_PTH ---
PATIENT: Concepcion Ferrera LOC: [facility] U#:[id number] AGE/SX: 34/F ROOM: RE04/17/[address]: Francis Lezama MD : 1990 BED: DIS: 04/17/2025 SPEC #: [id number] RECD: 04/17/25 09:57 STATUS: GUANAKO REJohnathan #: [id number] NUNO: 04/17/25 09:[address]: Francis Oconnor DEPT: [facility] Surgical RECD BY: Mago Inman ENTERED: 04/17/25 09:57 SP TYPE: Surgical OTHR DR: Rosa Christensen, TECHNOLOGY AUDITOR Tissues: A - Endometrial Curettings Procedures: Hematoxylin and Eosin Stain Gross and Microscopic Level 4
[2025-04-17] MEDS: KETOROLAC 30 MG/ML VIAL (*BKC) IV PUSH (09:38)
--- NOTE | 2025-04-17 09:40 | W.PM.PROC2 ---
Procedure Note - Detailed Date of Procedure 04/17/25 Pre-op Diagnosis irregular bleeding Post-op Diagnosis Same Procedure Performed Hysteroscopy/dilatation curettage Surgeon Francis Lezama MD Anesthesia MAC and Local Indications 34-year-old female with excessive heavy bleeding Findings Uterus sounded to7.5cm. Thick irregular endometrial tissue was present with normal fallopian tube ostia bilaterally. Description of Procedure The patient was prepped draped in the normal sterile fashion placed in the dorsal lithotomy position. Under excellent IV sedation weighted speculum placed posterior fornix vagina. Anterior lip of the cervix grasped with a single-tooth tenaculum. 2.5cc 1% xylocaine anesthesia placed at 2, 4, 8, 10:00 a.m. of the cervix. Uterus sounded to 7.5cm. Serial dilatation with fragmented dilators performed followed by passage of the 5mm visualizing hysteroscope. Normal saline was used as visualizing medium. Thick irregular endometrial tissue was seen but no evidence of polyp or other definitive abnormalities were seen. Uterus was scraped over the entire 360? until good grating sound was heard. Instruments with withdrawn patient went to recovery in satisfactory condition. Blood loss estimated 5cc all sponge, needle, instrument counts were correct. There were no immediate complications Estimated Blood Loss 5 Drains No Packing No Pathology Yes Complications No immediate complications Condition Stable Disposition PACU
[2025-04-17 09:47] VITALS: BP 95/79; PULSE 57; RESP 14; O2SAT 93
[2025-04-17 10:15] VITALS: BP 97/58; PULSE 46; RESP 14; O2SAT 95
[2025-04-17 10:30] VITALS: BP 98/59; PULSE 43; RESP 14
== END 2025-04-17 10:40 | disposition home or self-care (01) ==
PROVIDERS: PCP Nurse Practitioner Family; Visit Provider Obstetrics & Gynecology
PROC: 0U5B8ZZ Destruction of Endometrium, Via Natural or Artificial Opening Endoscopic (ICD-10-PCS; CPT 58563; principal; 2025-04-17 10:00)
DX: N92.1 Excessive and frequent menstruation with irregular cycle (principal); Z87.891 Personal history of nicotine dependence; E66.9 Obesity, unspecified; Z68.35 Body mass index [BMI] 35.0-35.9, adult
CPT/HCPCS: 58558; 88305; A9270; J1100; J1885; J2003; J2250; J2405; J2704; J3010; J7120